=== PATIENT | female | born 1990 ===

== ENCOUNTER 2018-09-10 15:32 | Outpatient (CLI) | payer OTHER ==
--- NOTE | 2018-09-10 16:41 | Non Stress Test Report ---
Non Stress Test Datetime Report Generated by CPN: 09/10/2018 16:41 DEMOGRAPHIC EGA NST: 35.1 INDICATION Indication for Study: Ordered by Provider MONITORING Monitor Explained: Monitor Explained; Test Explained; Patient Verbalized Understanding Time on Monitor: 09/10/2018 15:43 Time off Monitor: 09/10/2018 16:03 NST Duration: 20 NST INTERVENTIONS Physician Notified NST: A. Polanco, CNM BABY A: [id number] BABY A Movement : Present Contraction Frequency : none FHR Baseline : 140 Accelerations : 15X15 Decelerations : None Variability : Moderate 6-25bpm NST Review: Meets Criteria for Reactive NST NST Review and Verified By : JSOH Bautista NSKavita Results: Reactive NST REPORT Report Trigger: Send Report
== END 2018-09-10 16:07 | disposition home or self-care (01) ==
LOC: LC 15:32
PROVIDERS: ATTEND Student in an Organized Health Care Education/Training Program
PROC: 4A1HXCZ Monitoring of Products of Conception, Cardiac Rate, External Approach (ICD-10-PCS; principal; 2018-09-10)
DX: O24.419 Gestational diabetes mellitus in pregnancy, unspecified control (principal); Z3A.35 35 weeks gestation of pregnancy
CPT/HCPCS: 59025

== ENCOUNTER 2018-10-15 06:33 | Inpatient (IN) | payer OTHER ==
[2018-10-15] MEDS ORDERED: RINGERS SOLUTION,LACTATED 1,000 ML IV PRN (06:36)
[2018-10-15] MEDS ORDERED: OXYTOCIN/NORMAL SALINE 20 UNIT/1,000 ML RTUINJ IV PRN ×2 (06:44→16:54)
[2018-10-15] MEDS ORDERED: RINGERS SOLUTION,LACTATED 300 ML IV ONE (06:44)
[2018-10-15 07:03] LABS: ABSOLUTE LYMPHOCYTES (AUTO) 1.9 10^3/uL (0.5-4.7); ABSOLUTE MONOCYTES (AUTO) 0.5 10^3/uL (0.1-1.4); BASOPHILS % (AUTO) 0.2 % (0-2); EOSINOPHILS % (AUTO) 0.5 % (0-6); HEMATOCRIT 37.3 % (36.0-47.0); HEMOGLOBIN 12.7 g/dL (12.0-15.5); LYMPHOCYTES % (AUTO) 22.7 % (13-45); MEAN CORPUSCULAR HEMOGLOBIN 29.3 pg (27.0-33.4); MEAN CORPUSCULAR HGB CONC 34.1 g/dL (32.0-36.0); MEAN CORPUSCULAR VOLUME 86 fl (80-97); MONOCYTES % (AUTO) 5.8 % (3-13); PLATELET COUNT 256 10^3/uL (150-450); RED BLOOD COUNT 4.35 10^6/uL (3.72-5.28); RED CELL DISTRIBUTION WIDTH 14.2 % (11.5-14.0); SEGMENTED NEUTROPHILS % (AUTO) 70.8 % (42-78); TOTAL CELLS COUNTED % (AUTO) 100 %; WHITE BLOOD COUNT 8.5 10^3/uL (4.0-10.5)
[2018-10-15 07:45] LABS: APPEARANCE,URINE CLOUDY; BILIRUBIN,URINE NEGATIVE (NEGATIVE); COLOR,URINE YELLOW; GLUCOSE, URINE NEGATIVE (NEGATIVE); KETONES,URINE NEGATIVE (NEGATIVE); LEUKOCYTE ESTERASE,URINE LARGE (NEGATIVE); NITRITE,URINE NEGATIVE (NEGATIVE); PROTEIN,URINE NEGATIVE (NEGATIVE); URINE SPECIFIC GRAVITY 1.023
[2018-10-15 08:02] LABS: URINE AMPHETAMINES SCREEN NEGATIVE; URINE BARBITURATES SCREEN NEGATIVE; URINE BENZODIAZEPINES SCREEN NEGATIVE; URINE COCAINE SCREEN NEGATIVE; URINE MARIJUANA (THC) SCREEN NEGATIVE; URINE METHADONE SCREEN NEGATIVE; URINE PHENCYCLIDINE SCREEN NEGATIVE
[2018-10-15] MEDS ORDERED: MISOPROSTOL 0.2 MG TABLET ONE (08:20)
[2018-10-15] MEDS ORDERED: OXYTOCIN 10 UNIT/ML VIAL ONE (08:20)
[2018-10-15] MEDS ORDERED: OXYTOCIN/NORMAL SALINE 20 UNIT/1,000 ML RTUINJ ONE (08:21)
[2018-10-15] MEDS ORDERED: LIDOCAINE 1% INJ-PF (10 MG/ML) 30 ML SDV ONE (08:21)
[2018-10-15] MEDS ORDERED: OXYTOCIN/NORMAL SALINE 0 UNIT/0 ML RTUINJ ONE (08:21)
--- NOTE | 2018-10-15 08:51 | Admission Physical ---
Datetime Report Generated by CPN: 10/15/2018 08:51 CURRENT ADMISSION Chief Complaint: Scheduled Induction of Labor Indication for Induction: Postterm Admit Impression : No Active Labor; Induction of Labor Admit Plan: Initiate Labor Induction Protocol ALLERGIES Medication Allergies: No Medication Allergies: No Known Allergies (10/15/2018) Latex: No Latex Allergies Food Allergies: denies Environmental Allergies: denies OBSTETRICAL HISTORY EDC: 10/14/2018 00:00 : 2 Para: 1 Term: 1 Livin Gestational Diabetes: Yes Rh Sensitization: No Incompetent Cervix: No TOÑITO: No Infertility: No ART Treatment: No Uterine Anomaly: No IUGR: No Hx Previous C/S: No Macrosomia: No Hx Loss/Stillborn: No PIH: No Hx : No Placenta Previa/Abruption: No Depression/PP Depression: No PTL/PROM: No Post Hemorrhage: No Current Procedures: Ultrasound; NST Obstetrical History Comments: G1: 2013 G2: current GDM SEE RECORDS Alcohol: No Marijuana : No Cocaine: No Other Illicit Drugs: No Cigarettes: Never Smoker. [id number] MEDICAL HISTORY Diabetes: No Blood Transfusion: No Pulmonary Disease (Asthma, TB): No Breast Disease: No Hypertension: No Food Mixer Surgery: No Heart Disease: No Hosp/Surgery: Yes Autoimmune Disorder: No Anesthetic Complications: No Kidney Disease: No Abnormal Pap Smear: No Neuro/Epilepsy: No Psychiatric Disorders: No Other Medical Diseases: No Hepatitis/Liver Disease: No Significant Family History: No Varicosities/Phlebitis: No Trauma/Violence : No Thyroid Dysfunction: No Medical History Comments: childbirth 2014 gallbladder removal 2010 INFECTIOUS HISTORY Gonorrhea: No Genital Herpes: No Chlamydia: Yes Tuberculosis: No Syphilis: No Hepatitis: No HIV/AIDS Exposure: No Rash or Viral Illness: No HPV: No Infectious History Comments: chlamydia 2010 PHYSICAL EXAM General: Normal HEENT: Deferred Neurologic: Normal Thyroid: Deferred Heart: Normal Lungs: Normal Breast: Deferred Back: Deferred Abdomen: Normal Genitourinary Exam: Normal Extremities: Normal DTRs: Deferred Pelvic Type: Adequate Physical Exam Comments: cervix per RN, /-2 Vital Signs: Reviewed MEMBRANES Membranes: Intact FETUS A EGA: 40.1 Monitoring: External US FHR- Baseline: 140 Accelerations: 15X15 Presentation: Vertex Admit Comment: GBS neg EFW 8-9 lbs PLANS FOR LABOR AND DELIVERY Labor and Delivery: None Pain Management: Epidural Feeding Preference: Breast Benefit of Breast Feed Discussed: Yes Circumcision: N/A INFORMED CONSENT Assignment: Debbie Taylor MD Signature: with User ID: [email or web address] : with User ID: [email or web address]
[2018-10-15] MEDS ORDERED: BUPIVACAINE HCL 0.25 % INJ/PF (2.5 MG/1 ML) 30 ML VIAL ONE (11:12)
[2018-10-15] MEDS ORDERED: FENTANYL/BUPIVACAINE/NS/PF 300 MCG/150 ML RTUINJ EPI ONE (11:12)
[2018-10-15] MEDS ORDERED: EPHEDRINE SULFATE INJ 50 MG/1 ML AMPULE ONE (11:12)
[2018-10-15] MEDS ORDERED: LIDOCAINE 1.5%/EPINEPHRINE INJ 5 ML AMP ONE (11:12)
--- NOTE | 2018-10-15 14:10 | L&D Progress Notes ---
PROGRESS NOTES Datetime Report Generated by CPN: 10/15/2018 14:09 PROGRESS NOTE Impression: Arrest of Dilatation/Descent Procedures: Intrauterine Pressure Catheter Plan: Continue Present Management Vital Signs : Reviewed Comment: IUPC placed, pitocin on 20 mu Pt to be turned q30 min extreme Rt/LT lateral with peanut ball in attempt to rotate baby OA LAST VAGINAL EXAM-NURSING Dilitation: 4.0 Dilitation: 3.0 Dilitation: 3.0 Effacement: 90 Effacement: 60 Effacement: 50 Station: -2 Station: -2 Station: -3 Contractions: Pt was up to bathroom during this time MEMBRANES Membranes: Ruptured Membranes: Intact Amniotic Fluid Color: Clear FETUS A FHR - Baseline: 125 Monitoring: External US Variability: Moderate 6-25bpm Decelerations: None FHR Category: Category I : 40.1 : 40.1 Presentation: Vertex SIGNATURE SIGNATURE: [id number];[id number];[id number] SIGNATURE: [id number];[id number] SIGNATURE: [id number] Assignment: Debbie Taylor MD Signature: with User ID: [email or web address] : with User ID: [email or web address]
[2018-10-15] MEDS ORDERED: ZOLPIDEM TARTRATE 5 MG TABLET PO PRN (16:54)
[2018-10-15] MEDS ORDERED: ACETAMINOPHEN WITH CODEINE #3 TABLET PO PRN (16:54)
[2018-10-15] MEDS ORDERED: BENZOCAINE/MENTHOL AEROSOL SPRAY 56 ML TOP PRN (16:54)
[2018-10-15] MEDS ORDERED: DIPH/PERTUSS(ACELL)/TETANUS VAC/PF 0.5 ML SYR (>=10YO) IM PRN (16:54)
[2018-10-15] MEDS ORDERED: DIBUCAINE 1% OINTMENT 56 GM TP PRN (16:54)
[2018-10-15] MEDS ORDERED: IBUPROFEN 800 MG TABLET ONE (17:19)
--- NOTE | 2018-10-15 19:24 | Delivery Summary ---
Del Sum A-C Datetime Report Generated by CPN: 10/15/2018 19:24 DELIVERY PERSONNEL DELIVERY PERSONNEL: [id number] Nurse Television And Radio Repairer Certified:: Nora Leonard CNM Labor and Delivery Nurse:: Jake Edwards RNtowel sorter Nurse:: Nery Vargas RN Student Observers:: Adarsh Cadena CNA CCCDaniela Fur Cleaner/CORRUGATOR OPERATOR: Edyta Plaza CNA II Additional Personnel: : CARLY Tamez MATERNAL INFORMATION Delivery Anesthesia: Epidural Medications After Delivery: Pitocin Bolus-Please Comment Meds After Delivery Comment: Pitocin 20 units in 1000 ml nss open for bolus Estimated Blood Loss (ml): 250 Maternal Complications: None Provider Comments: SVDVF over intact perineum. ROP, loose nuchal cord not reduced. vigorous, to mothers abd. Cord clamped and cut per FOB. 3VC, cord blood collected. Placenta via pardo, intact with trailing membranes. Laceration repair Rt labia. Mother and infant stable. LABOR SUMMARY EDC: 10/14/2018 00:00 No. Babies in Womb: 1 Attempted: No Labor Anesthesia: Epidural LABOR INFORMATION Reason for Induction: Maternal Diabetes Onset of Labor: 10/15/2018 10:46 Complete Dilatation: 10/15/2018 15:50 Oxytocin: Induction Group B Beta Strep: Negative Antibiotics # of Doses: 0 Antibiotics Time of Last Dose: 0 Name of Antibiotic Given: 0 Steroids Given: None Reason Steroids Not Administered: Not Applicable MEMBRANES Membranes Rupture Method: Artificial Rupture of Membranes: 10/15/2018 10:46 Length of Rupture (hr): 5.73 Amniotic Fluid Color: Clear Amniotic Fluid Amount: Small Amniotic Fluid Odor: Normal STAGES OF LABOR Stage 1 hr: 5 Stage 1 min: 4 Stage 2 hr: 0 Stage 2 min: 40 Stage 3 hr: 0 Stage 3 min: 8 Total Time in Labor hr: 5 Total Time in Labor min: 52 VAGINAL DELIVERY Episiotomy: None Laceration Extension #1: N/A Other Laceration: right labial laceration, repaired Laceration Repair: Yes Laceration Repair Note: 3.0 chromic used for repaired epidural anesthesia adequate Sponge Count Correct: N/A Sharps Count Correct: N/A CSECTION DELIVERY Primary Indication: N/A Secondary Indication: N/A CSection Incidence: N/A Labor: N/A Elective: N/A CSection Incision: N/A BABY A INFORMATION Delivery Date/Time: 10/15/2018 16:30 Method of Delivery: Vaginal Born in Route : No : N/A Forceps: N/A Vacuum Extraction: N/A Shoulder Dystocia : No PRESENTATION/POSITION BABY A Presentation: Cephalic Cephalic Presentation: Vertex Vertex Position: Right Occipital Posterior Breech Presentation: N/A PLACENTA INFORMATION BABY A Placenta Delivery Time : 10/15/2018 16:38 Placenta Method of Delivery: Spontaneous Placenta Status: Delivered SCORES BABY A Heart Rate 1 min: >100 bpm Resp Effort 1 min: Good Cry Reflex Irritability 1 min: Cough or Sneeze or Pulls Away Muscle Tone 1 min: Active Motion Color 1 min: Blue/Pale Resuscitation Effort 1 min: Tactile Stimulation SCORE 1 MIN: 8 Heart Rate 5 min: >100 bpm Resp Effort 5 min: Good Cry Reflex Irritability 5 min: Cough or Sneeze or Pulls Away Muscle Tone 5 min: Active Motion Color 5 min: Body [place], Extremities Blue Resuscitation Effort 5 min: N/A SCORE 5 MIN: 9 Resuscitation Effort 10 min: N/A INFANT INFORMATION BABY A Gestational Age at Delivery: 40.1 Gestational Status: Full Term- 39- 40.6 Weeks Infant Outcome : Liveborn Condition : Stable Infant Sex: Female IDENTIFICATION BABY A Verification Date/Time: 10/15/2018 17:24 ID Band Number: [id number] Mother's Name Verified: Yes Infant RN Verifying Infant: Romaine Vargas RN Additional Verifying Personnel: Cyndee Edwards RN WEIGHT/LENGTH BABY A Infant Birthweight (gm): 3524 Infant Weight (lb): 7 Weight (oz): 12 Infant Length (in): 21.00 Infant Length (cm): 53.34 CORD INFORMATION BABY A No. Cord Vessels: 3 Nuchal Cord : Around Neck x1, Loose Cord Blood Taken: Yes-For Eval (Mom's Blood Type - or O+) Infant Suction: None ASSESSMENT BABY A Infant Complications: Extended Bradycardia; Multiple Variable Decels Physical Findings at Delivery: Caput Succedaneum Respirations: Appears Normal Skin to Skin: Yes Infant Care By: H Mary Kate RN Transferred To: Remains with Mother BABY B INFORMATION : N/A SIGNATURES Assignment: Debbie Taylor MD Signature: with User ID: [email or web address] : with User ID: [email or web address] : I was personally available for consultation and serving as supervising physician for the MLP.
[2018-10-15] MEDS: ACETAMINOPHEN WITH CODEINE #3 TABLET PO PRN (21:03)
[2018-10-16] MEDS: DOCUSATE SODIUM 100 MG CAPSULE PO SCH ×3 (03:22→17:16)
[2018-10-16] MEDS: FERROUS SULFATE 325 MG TABLET PO SCH ×3 (03:23→17:16)
[2018-10-16] MEDS: IBUPROFEN 800 MG TABLET PO SCH ×4 (03:23→21:41)
[2018-10-16] MEDS: ACETAMINOPHEN WITH CODEINE #3 TABLET PO PRN ×3 (05:48→18:46)
[2018-10-16 08:18] LABS: HEMATOCRIT 31.7 % (36.0-47.0); HEMOGLOBIN 10.8 g/dL (12.0-15.5); MEAN CORPUSCULAR HEMOGLOBIN 29.6 pg (27.0-33.4); MEAN CORPUSCULAR VOLUME 87 fl (80-97); PLATELET COUNT 223 10^3/uL (150-450); RED BLOOD COUNT 3.65 10^6/uL (3.72-5.28); RED CELL DISTRIBUTION WIDTH 14.2 % (11.5-14.0); WHITE BLOOD COUNT 9.9 10^3/uL (4.0-10.5)
--- NOTE | 2018-10-16 09:09 | PDOC PROGRESS REPORT ---
Subjective-OB Progress Note for:: 10/16/18 Subjective: doing well, no c/o, breast feeding, voiding, eating well Physical Exam (OB) Vital Signs: Temp Pulse Resp BP Pulse Ox 98.3 F 67 18 113/63 100 10/16/18 07:40 10/16/18 07:40 10/16/18 07:40 10/16/18 07:40 10/16/18 07:40 Intake & Output 10/15/18 10/16/18 10/17/18 06:59 06:59 06:59 Weight 84.1 kg - Lochia Lochia Amount: Small 10-25 ml Lochia Color: Rubra/Red - Abdomen Description: Soft, Round Hernia Present: No Fundal Description: Firm, Midline Fundal Height: u/u - u/2 Objective-Diagnostic Laboratory: 10/16/18 07:34 10/16/18 07:34 WBC 9.9 RBC 3.65 L Hgb 10.8 L Hct 31.7 L MCV 87 MCH 29.6 MCHC 34.0 RDW 14.2 H Plt Count 223 Assessment and Plan(PN) - Assessment and Plan (1) Rubella nonimmune status, delivered, current hospitalization Is this a current diagnosis for this admission?: Yes (2) Gestational diabetes mellitus Qualifiers: Gestational diabetes mellitus control: diet-controlled Is this a current diagnosis for this admission?: Yes (3) Delivery normal Is this a current diagnosis for this admission?: Yes - Time Spent with Patient Time with patient: Less than 15 minutes Medications reviewed and adjusted accordingly: Yes - Disposition Anticipated Discharge: Home Within: within 24 hours
[2018-10-16] MEDS: PRENATAL VITAMIN W DHA CAPSULE PO SCH (10:02)
[2018-10-16] MEDS: SENNOSIDES/DOCUSATE 8.6-50 MG 1 EACH TABLET PO SCH (10:02)
[2018-10-17] MEDS: ACETAMINOPHEN WITH CODEINE #3 TABLET PO PRN (01:12)
[2018-10-17] MEDS: IBUPROFEN 800 MG TABLET PO SCH (05:41)
--- NOTE | 2018-10-17 08:40 | PDOC PROGRESS REPORT ---
Subjective-OB Progress Note for:: 10/17/18 Subjective: Ready to go home. Physical Exam (OB) Vital Signs: Temp Pulse Resp BP Pulse Ox 98.0 F 63 16 122/75 99 10/17/18 07:18 10/17/18 07:18 10/17/18 07:18 10/17/18 07:18 10/17/18 07:18 - PIH/Pre-Eclampsia Clonus: Negative Headache: Absent Epigastric Pain: No Visual Changes: No - Lochia Lochia Amount: Scant < 10 ml Lochia Color: Rubra/Red - Abdomen Description: Soft, Flat Hernia Present: No Bowel Sounds: Normoactive Flatus Presence: Present Stool: Yes Fundal Description: Firm, Midline Fundal Height: u/u - u/2 Objective-Diagnostic Laboratory: 10/16/18 07:34 Assessment and Plan(PN) - Time Spent with Patient Medications reviewed and adjusted accordingly: Yes - Disposition Anticipated Discharge: Home
--- NOTE | 2018-10-17 08:45 | PDOC DISCHARGE SUMMARY ---
Final Diagnosis Discharge Date: 10/17/18 - Final Diagnosis (1) Delivery normal Is this a current diagnosis for this admission?: Yes (2) Gestational diabetes mellitus Is this a current diagnosis for this admission?: Yes (3) Rubella nonimmune status, delivered, current hospitalization Is this a current diagnosis for this admission?: Yes Discharge Data - Discharge Medication Home Medications: Vit,Calc76/Iron/Folic [Pnv 29-1 Tablet] 1 tab PO DAILY 10/15/18 Gestational Age: 40.1 wks Reason(s) for Admission: Induction of Labor Procedures: Ultrasound Intrapartum Procedure(s): Spontaneous Vaginal Delivery Complication(s): Laceration-Labial Laceration-Degree: 1st - Data Baby 1 Female at 1 minute: 8 at 5 minutes: 9 Weight: 3.515 kg Home with Mother: Yes Complications: No - Diagnosis Test Laboratory: Temp Pulse Resp BP Pulse Ox 98.0 F 63 16 122/75 99 10/17/18 07:18 10/17/18 07:18 10/17/18 07:18 10/17/18 07:18 10/17/18 07:18 10/15/18 10/15/18 10/16/18 06:50 06:52 07:34 RBC 4.35 3.65 L Hgb 12.7 10.8 L Hct 37.3 31.7 L Urine Opiates Screen NEGATIVE - Discharge information/Instructions Discharge Activity: Activity As Tolerated, Balance Activity w/Rest, No Lifting Over 10 Pounds, No Lifting/Push/Pulling, Non-Ambulatory Child, Pelvic Rest, S lowly Increase Activity, No tub bath Discharge Diet: Regular Disposition: HOME, SELF-CARE Follow up with: [facility] in: 4, Weeks
[2018-10-17] MEDS: DOCUSATE SODIUM 100 MG CAPSULE PO SCH (09:16)
[2018-10-17] MEDS: SENNOSIDES/DOCUSATE 8.6-50 MG 1 EACH TABLET PO SCH (09:16)
[2018-10-17] MEDS: FERROUS SULFATE 325 MG TABLET PO SCH (09:16)
[2018-10-17] MEDS: PRENATAL VITAMIN W DHA CAPSULE PO SCH (09:16)
[2018-10-17 12:12] VITALS: BP 129/75
== END 2018-10-17 13:00 | disposition home or self-care (01) | DRG 807 ==
LOC: LR 06:33 → 2S 19:45
PROVIDERS: ADMIT Obstetrics & Gynecology; ATTEND Obstetrics & Gynecology
PROC: 10E0XZZ Delivery of Products of Conception, External Approach (ICD-10-PCS; principal; 2018-10-15)
PROC: 0UQMXZZ Repair Vulva, External Approach (ICD-10-PCS; 2018-10-15)
PROC: 3E033VJ Introduction of Other Hormone into Peripheral Vein, Percutaneous Approach (ICD-10-PCS; 2018-10-15)
PROC: 10907ZC Drainage of Amniotic Fluid, Therapeutic from Products of Conception, Via Natural or Artificial Opening (ICD-10-PCS; 2018-10-15)
PROC: 4A1HXCZ Monitoring of Products of Conception, Cardiac Rate, External Approach (ICD-10-PCS; 2018-10-15)
DX: O48.0 Post-term pregnancy (principal); Z37.0 Single live birth; O24.420 Gestational diabetes mellitus in childbirth, diet controlled; O69.81X0 Labor and delivery complicated by cord around neck, without compression, not applicable or unspecified; O70.0 First degree perineal laceration during delivery; Z28.21 Immunization not carried out because of patient refusal; Z3A.40 40 weeks gestation of pregnancy
CPT/HCPCS: 36415; 80307; 81005; 85025; 85027; 86592; 86850; 86900; 86901; 94760; J2590; J3010; J3490